=== PATIENT | female | born 1970 | race Caucasian/White ===

== ENCOUNTER → 2021-08-23 | Outpatient (CLI) | payer BC | LOC: KOH-I 13:20 | DX: M25.572 Pain in left ankle and joints of left foot (principal); M79.672 Pain in left foot | CPT/HCPCS: 73610; 73630 ==

== ENCOUNTER → 2021-09-23 | Outpatient (CLI) | payer BC | LOC: KOH-I 15:34 | DX: S86.012A Strain of left Achilles tendon, initial encounter (principal); M76.72 Peroneal tendinitis, left leg | CPT/HCPCS: 73721 ==